=== PATIENT | male | born 1975 | race Caucasian/White ===

== ENCOUNTER 2019-07-20 10:05 | Emergency (ER) | payer BC ==
[2019-07-20 10:14] VITALS: BP 183/101
--- NOTE | 2019-07-20 10:32 | UC ---
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 Has heat and cold sensitivity, some ear pain, no fever. He has a hx of treatment of hypertension; meds were stopped one year ago, and he has not been back since. Reviewed that his blood pressure is elevated today. - History of Current Complaint Chief Complaint: UCDentalProblem Stated Complaint: DENTAL PAIN Time Seen by Provider: 07/20/19 10:22 Hx Obtained From: Patient, Family/Quality Control Head - here with his . Onset/Duration: Gradual Onset, Lasting Days - 2 Severity: Moderate Pain Intensity: 9 Aggravating Factor(s): Heat, Cold, Chewing Alleviating Factor(s): OTC Meds Related History: Previous Dental Care on Same Tooth - Allergies/Home Medications Allergies/Adverse Reactions: Allergies Allergy/AdvReac Type Severity Reaction Status Date / Time No Known Allergies Allergy Verified 07/20/19 10:14 Home Medications: Home Medications Ibuprofen 600 mg PO Q6HR 07/20/19 [History Confirmed 07/20/19] PMH/Surg Hx/FS Hx/Imm Hx Cardiovascular History: Hypertension - off meds x 1 year. - Surgical History Surgical History: Yes Surgery Procedure, Year, and Place: tonsillectomy as kid. tibia repair - Family History Known Family History: Positive: Non-Contributory - Social History Occupation: Employed Full-time Alcohol Use: Weekly Substance Use Type: None Smoking Status (MU): Heavy Every Day Tobacco Smoker Type: Cigarettes Amount Used/How Often: 1.5PPD Length of Time of Smoking/Using Tobacco: age 13 to current Have You Smoked in the Last Year: Yes - Immunization History Most Recent Influenza Vaccination: none Review of Systems All Other Systems Reviewed And Are Negative: Yes Constitutional: Positive: Fatigue - poor sleep Skin: Positive: Negative Eyes: Positive: Negative ENT: Positive: Dental Pain Respiratory: Positive: Negative Cardiovascular: Positive: Negative. Negative: Palpitations, Chest Pain Gastrointestinal: Positive: Negative Genitourinary: Positive: Negative Motor: Positive: Negative Neurovascular: Positive: Negative Musculoskeletal: Positive: Negative Neurological: Positive: Negative Is Patient Immunocompromised?: No Physical Exam Triage Information Reviewed: Yes Appearance: Pain Distress - moderate, Obese Vital Signs: Initial Vital Signs Temp 98.5 F 07/20/19 10:09 Pulse 102 07/20/19 10:09 Resp 18 07/20/19 10:09 BP 183/101 07/20/19 10:09 Pulse Ox 90 07/20/19 10:09 Eyes: Positive: Conjunctiva Clear ENT: Positive: Pharynx normal Dental Exam: Other - edentulous upper mouth Dental: Positive: Percussion Tenderness @, Gross Decay/Caries @, Dental Fracture @ - 23 Respiratory: Positive: Lungs clear, Normal breath sounds Cardiovascular: Positive: RRR, No Murmur Musculoskeletal Exam: Normal Neurological Exam: Normal Psychological Exam: Normal Images Dental: 1 - deep decay and fracture 2 - abscess along gum line. Dental Complaint Course/Dx - Course Course Of Treatment: Pneincillin for dental infection. Alternate ibuprofen and acetaminophen for control of pain. Urged dental assessment LEA - Differential Dx/Diagnosis Differential Diagnosis/Dx: Dental Abscess, Dental Caries, Fractured Tooth Provider Diagnosis: Dental abscess Discharge ED - Sign-Out/Discharge Documenting (check all that apply): Patient Departure All imaging exams completed and their final reports reviewed: No Studies - Discharge Plan Condition: Stable Disposition: HOME Prescriptions: Penicillin VK 500 MG TAB(NF) [Penicillin VK 500 mg Tab] 500 mg PO QID #28 tab Patient Education Materials: Dental Abscess (ED) Forms: *Work Release Referrals: Nicho Mazariegos MD [Primary Care Provider] - Additional Instructions: You have been prescribed penicillin for dental abscess. You have 2 hydrocodone to use for relief of pain as a single dose. Alternate use of ibupofen 600mg every 6 hours and acetaminophen 625 mg every 6 hours for relief of pain. IT IS ESSENTIAL THAT YOU CONTACT YOUR DENTIST TO HAVE TREATMENT OF YOUR TEETH SOON POSSIBLE. your blood pressure is markedly elevated today, with an initial reading of 183/ 101. Ensure that you have a blood pressure recheck within a week. - Billing Disposition and Condition Condition: STABLE Disposition: Home
[2019-07-20] MEDS ORDERED: HYDROcodone/ACETAMIN 5-325 MG* 1 TAB PO ONE (10:42)
== END 2019-07-20 11:19 | disposition home or self-care (01) ==
LOC: UCEAST 10:05
DX: S02.5XXA Fracture of tooth (traumatic), initial encounter for closed fracture (principal); K04.7 Periapical abscess without sinus; K02.9 Dental caries, unspecified; F17.210 Nicotine dependence, cigarettes, uncomplicated; I10 Essential (primary) hypertension; X58.XXXA Exposure to other specified factors, initial encounter; Y92.9 Unspecified place or not applicable
CPT/HCPCS: 99212; G0463